=== PATIENT | female | born 1955 | race African-American/Black ===

== ENCOUNTER 2021-02-17 12:30 | Outpatient (CLI) | payer MEDICARE, SELFPAY ==
--- NOTE | ~2021-02-17 | XR_ITS ---
EXAMINATION: XR lg joint inject/asp w image DATE: 02/17/2021 13:26 INDICATION: Right shoulder pain and osteoarthritis. TECHNIQUE: A time-out was performed to verify the patient's name, date of , and procedure to b e performed. The procedure including the risks, benefits, and alternatives was discussed with the pat ient. Risks discussed included bleeding and infection. The patient understood the risks and agreed to proceed. The skin overlying the rotator cuff interval of the right glenohumeral joint was prepped a nd draped in usual sterile fashion. Anesthetic was administered with 1% lidocaine subcutaneously. A 22 G needle was advanced under fluoroscopic guidance into the joint. Injection of 1 mL of Omnipaque 240 confirmed intra-articular position of the needle. Subsequently, injectate consisting of 5 mL of a 4:1 mixture of 1% lidocaine: 80 mg/mL Depo-Medrol for a total dose of 80 mg Depo-Medrol was instil led. Washout of contrast was seen confirming intra-articular administration. The needle was removed a nd the entry site was cleaned and dressed. There were no immediate complications. Fluoroscopy exposu re time was 0.1 minutes. The total number of images was 2. FINDINGS: Real-time fluoroscopy demonstrates the needle in the right glenohumeral joint. Patient's pa in prior to procedure:07/09. Patient's pain following the procedure: 02/06. IMPRESSION: 1. Right glenohumeral joint injection of local anesthetic and steroid with decrease in the patient's presenting pain. Reviewed, dictated and finalized at location A. IMPRESSION: 1. Right glenohumeral joint injection of local anesthetic and steroid with decr ease in the patient's presenting pain.
== END 2021-02-17 12:31 | disposition home or self-care (01) ==
PROVIDERS: Visit Provider Orthopaedic Surgery
DX: M19.011 Primary osteoarthritis, right shoulder (principal)
CPT/HCPCS: 20610; 77002; J1040; Q9966

== ENCOUNTER 2022-11-10 12:52 | Outpatient (CLI) | payer MEDICARE, SELFPAY ==
--- NOTE | ~2022-11-10 | XR_ITS ---
EXAMINATION: XR lg joint inject/asp w image DATE: 11/10/2022 13:59 INDICATION: Right shoulder pain. TECHNIQUE: A time-out was performed to verify the patient's name, date of , and procedure to b e performed. The procedure including the risks, benefits, and alternatives was discussed with the pat ient. Risks discussed included bleeding and infection. The patient understood the risks and agreed to proceed. The skin overlying the right glenohumeral joint was prepped and draped in usual sterile fa shion. Anesthetic was administered with 1% lidocaine subcutaneously. A 22 G needle was advanced und er fluoroscopic guidance into the joint. Subsequently, injectate consisting of 3 mL lidocaine and 1 mL 80 mg/mL Depo-Medrol was instilled. The needle was removed and the entry site was cleaned and tae ssed. There were no immediate complications. Fluoroscopy exposure time was 0.1 minutes. The total nu mber of images was 1. FINDINGS: Real-time fluoroscopy demonstrates the needle in the right glenohumeral joint. Patient's pa in prior to procedure:06/08. Patient's pain following the procedure: 03/08. IMPRESSION: 1. Fluoroscopy guided right glenohumeral joint injection of local anesthetic and steroid with decreas e in the patient's presenting pain. Reviewed, dictated and finalized at location A. GILDER IMPRESSION: 1. Fluoroscopy guided right glenohumeral joint injection of local anesthetic an d steroid with decrease in the patient's presenting pain.
== END 2022-11-10 12:53 | disposition home or self-care (01) ==
PROVIDERS: Visit Provider Orthopaedic Surgery
DX: M25.511 Pain in right shoulder (principal)
CPT/HCPCS: 20610; 77002; J1040

== ENCOUNTER 2025-03-03 10:30 | Outpatient (RCR) | payer MEDICARE, SELFPAY ==
--- NOTE | 2025-01-06 12:06 | OTOPEVAL1 ---
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 She is right handed. Experiencing difficulties with gripping. 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 She has been using Voltaren for relief. She has been trying some ROM exercises from her doctor. X-rays: X-rays of the right hand show significant osteoarthritis of the 1st CMC joint in the MP joint of the thumb. There is no arthritic changes of the rest of the MP joints. There is no arthritic changes to the PIP or D IP joints of the fingers. There is no evidence fracture or healed fractures. There is no arthritic changes in the wrist. Reported Pain Level Pain Score 0: Self Report Additional Pain Score Comments 0/10 pain at rest 5/10 pain with active ROM 8/10 pain at worst in the last week during ADLs Assessment OT Clinical Summary Patient referred to OT with a decline in right, dominant hand use following a fall. X-rays negative for fracture. She appears to have residual stiffness and pain from nonuse. Patient responded well to use of thermal modalities and HEP instruction. Also educated on adaptive ADL techniques with use of built up foam to improve binder chainstitch and to facilitate improved hand flexion around objects during ADLs. Continued skilled OT indicated to progress HEP, continued modalities use, therapeutic exercises, and activities to facilitate return of functional ROM/strength/use of her dominant hand. Plan of Care Interventions Therapeutic Exercise,Manual Therapy,Therapeutic Activities,Hot Pack/Cold Pack,Self-Care/Home Management,Paraffin OT Services Indicated Yes Treatment Frequency and 2x/week for 7 visits Duration These treatments will address the objective and functional deficits as defined above. The patient will be advanced safely and appropriately in order for the patient to progress towards his/her prior level of function. Additional exercises will be introduced and as well as a comprehensive home exercise program upon discharge, if needed, to ensure carryover of functional gains achieved in the clinic. This treatment plan has been reviewed and agreement upon by the patient.
--- NOTE | 2025-01-06 12:06 | OPREHPOC ---
Outpatient Therapy Plan of Care This is a Multidisciplinary Plan of Care that may contain components documented by all disciplines (PT, OT, and ST.) OT Problem 1 OT Problem #1 Knowledge Deficit OT Goal 1 Goal / Goal Update Pt to be independent with instructed materials. 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 Target Visit 7 OT Goal 2 Goal / Goal Update Patient to improve functional finger flexion ROM for improved major gifts director during ADLs as demonstrated by improving to less than 2 cm gap between finger tips and the DPC when making a hook fist. 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 Target Visit 7
--- NOTE | 2025-01-30 11:02 | OTOPPROG ---
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 She states she 's better, but not where I want to be yet . She is reporting no change in her pain levels, stating 5/10 is her normal and that it can get up to 8- 9/10 at worst . Assessment OT Clinical Summary Patient referred to OT with a decline in right, dominant hand use following a fall. She has participated in 7 treatment sessions focused on improving flexibility and wildlife biologist strength as well as treating pain with modalities and manual therapy. She is making progress with therapy. She is now able to make a fist with all finger tips touching the palm. Hook fist is improving from 2-4 cm gap to 1-2 cm gap. 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 Her reports of pain has remained unchanged , getting up to 8-9/10 on a bad day . She continues to have pain and tenderness with palpation to the middle finger flexor tendon at the volar MCP. No pain with passive extension stretch to the tendon. She responds well to thermal modalities of paraffin and US. Continued skilled OT indicated to progress HEP, continued modalities use, therapeutic exercises, and activities to facilitate return of functional ROM/ strength/use of her dominant hand. Plan of Care Interventions Therapeutic Exercise,Manual Therapy,Therapeutic Activities,Hot Pack/Cold Pack,Self-Care/Home Management,Paraffin OT Services Indicated Yes Treatment Frequency and 1x/week for 4 visits Duration These treatments will address the objective and functional deficits as defined above. The patient will be advanced safely and appropriately in order for the patient to progress towards his/her prior level of function. Additional exercises will be introduced and as well as a comprehensive home exercise program upon discharge, if needed, to ensure carryover of functional gains achieved in the clinic. This treatment plan has been reviewed and agreement upon by the patient.
--- NOTE | 2025-01-30 11:03 | OPREHPOC ---
Outpatient Therapy Plan of Care This is a Multidisciplinary Plan of Care that may contain components documented by all disciplines (PT, OT, and ST.) OT Problem 1 OT Problem #1 Knowledge Deficit OT Goal 1 Goal / Goal Update Pt to be independent with instructed materials. 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 ---OT POC UPDATE 01/30/25--- Progressed to 50, continue to 55 Target Visit 12
--- NOTE | 2025-03-03 10:51 | OTOPDC ---
Assessment and note entered by Gilberto Whitman, OTR/Mati, CHT OT D/C 03/03/25 Diagnosis M25.614 Stiffness of right hand, M18.12 OA of 1st [facility] ICD-10 Condition Codes (OT) Joint stiffness of right hand M25.641,Pain in right hand M79.641 Subjective Information Patient reports functional progress with her dominant hand. 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 She reports being very pleased with her progress. Pain levels have reduced from 5/10 to 0/10 at rest and from 9/10 to 3/10 at worst . Reported Pain Level Pain Score 0: Self Report Additional Pain Score Comments No pain at rest. Patient reports at worst her hand has felt is 2-3/10. She reports stiffness first thing waking up in the morning, but when she gets moving it resolves and she feels pretty good . Assessment OT Clinical Summary Patient referred to OT with a decline in right, dominant hand use following a fall. She has participated in 12 treatment sessions focused on improving flexibility and medical staff specialist strength as well as treating pain with modalities and manual therapy. She has made excellent progress with therapy as noted by improved ROM, improved strength, reduced pain, and functional use. Pain when completing gross gripping activities appeared to be localized to the flexor tendon of digit III over the volar MCP head area. With the use of modalities, manual therapy, and therapeutic exercise, patient's pain reduced allowing for progression of HEP and return of functional hand use. She continues to have some residual stiffness of the DIP/PIP joints of her fingers, which could be related to some underlying OA. Reviewed HEP and she verbalizes excellent understanding of all materials. D/C OT with HEP. Plan of Care OT Services Indicated No
--- NOTE | 2025-03-03 10:52 | OPREHPOC ---
Outpatient Therapy Plan of Care This is a Multidisciplinary Plan of Care that may contain components documented by all disciplines (PT, OT, and ST.) OT Problem 1 OT Problem #1 Knowledge Deficit OT Goal 1 Goal / Goal Update Pt to be independent with instructed materials. 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 ---OT POC UPDATE 01/30/25--- Met ---OT D/C 03/03/25--- Met Target Visit 12 OT Goal 2 Goal / Goal Update Patient to improve functional finger flexion ROM for improved asphalt raker during ADLs as demonstrated by improving to less than 2 cm gap between finger tips and the DPC when making a hook fist. 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 ---OT POC UPDATE 01/30/25--- Progressed to 50, continue to 55 ---OT D/C 03/03/25--- Met Target Visit 12
== END 2025-03-03 13:26 | disposition home or self-care (01) ==
LOC: ANHOT 10:30
PROVIDERS: PCP Physician Assistant Surgical; Visit Provider Physician Assistant Surgical
DX: M25.641 Stiffness of right hand, not elsewhere classified (principal); M18.12 Unilateral primary osteoarthritis of first carpometacarpal joint, left hand
CPT/HCPCS: 97018; 97035; 97110; 97140; 97165; 97530; 97535